=== PATIENT | female | born 1950 | race Caucasian/White ===

== ENCOUNTER 2024-09-12 17:57 | Inpatient (IN) | payer OTHER, MEDICARE, BC, SELFPAY ==
--- NOTE | ~2024-09-12 | XR_ITS ---
XR hip RT 2V w AP pelvis Ordering provider: Jewels Giraldo PA-C History: . fall, R hip pain . Comparison: None. FINDINGS: BONES: Fracture of the right femoral neck is noted at the junction between the neck and the humeral h ead.. HIP JOINT SPACES: Moderate narrowing. SACROILIAC JOINT SPACES/LUMBAR SPINE: The sacroiliac joint spaces are normal. Mild degenerative funk es of the visualized lower lumbar spine. PUBIC SYMPHYSIS: Pubic symphysitis. SOFT TISSUES: Normal. IMPRESSION: Fracture of the right femoral neck. Bilateral hip moderate osteoarthritic changes. Pubic symphysitis. Reviewed, dictated and finalized at location A.
--- NOTE | ~2024-09-12 | CT_ITS ---
CLINICAL INDICATION: Abnormal chest x-ray COMPARISON: Single radiograph of the chest performed approximately 90 minutes earlier. Reference is made to the upper cuts of a CT examination of the abdomen and pelvis dated 11/30/2012. TECHNIQUE: Multiple contiguous axial images of the chest was performed without the administration of intravenous contrast. This CT examination was performed utilizing dose reduction techniques. DLP: 199 mGy-cm FINDINGS/OBSERVATIONS: LUNG: Uncoiling of the thoracic aorta is identified, altering the cardiomediastinal silhouette and simulati ng a right hilar mass on plain film evaluation of the chest. 12 mm well circumscribed fat attenuation nodule within the right lower lobe, unchanged from 11/30/2012 examination, possibly representing a small lipoma. Trace right basilar atelectasis. The remainder of the lungs are clear. HEART: The heart is enlarged, without pericardial effusion. MEDIASTINUM: No pathologically enlarged or morphologically suspicious lymph nodes are identified within the medias tinum, bilateral axilla, or within the soft tissues of the anterior chest wall. Small right hilar lymph nodes are identified. SOFT TISSUES OF THE CHEST: Unremarkable. BONES OF THE CHEST: No acute fracture. No lytic or blastic lesions are identified. UPPER ABDOMEN: Splenic cyst which demonstrates rim calcifications, also unchanged from 2013. IMPRESSION: Uncoiling of the thoracic aorta altering the cardiomediastinal silhouette and simulating a right magaly r mass on plain film evaluation. Trace right basilar atelectasis. The remainder of the lungs are clear. Reviewed, dictated and finalized at location A. IMPRESSION: Uncoiling of the thoracic aorta altering the cardiomediastinal silhouette and s imulating a right hilar mass on plain film evaluation. Trace right basilar atelectasis. The remainder of the lungs are clear.
--- NOTE | ~2024-09-12 | XR_ITS ---
XR chest 1V Ordering provider: Jewels Giraldo PA-C History: 74 years Female with . POSSIBLE HIP FX . Comparison: None. FINDINGS: Calcification seen in the left breast area suggestive of calcified cyst. Ultrasound evaluation advise d. MEDIASTINUM: The cardiac silhouette is slightly enlarged. LUNGS: Soft tissue density measuring 4.3 cm is seen in the right suprahilar area which is suggestive of a mass. CT evaluation advised. No infiltrates, effusions or pneumothorax. OTHER: No free air under the diaphragm. IMPRESSION: No acute cardiopulmonary pathology. Highly suggestive mass in the right supra hilar area. CT evaluation advised Reviewed, dictated and finalized at location A.
--- NOTE | ~2024-09-12 | XR_ITS ---
EXAMINATION: XR hip RT min 2V DATE: 09/14/2024 17:00 INDICATION: Postoperative evaluation following right polar type right hip hemiarthroplasty placement TECHNIQUE: Anteroposterior and lateral views of the right hip were obtained. COMPARISON: 09/12/2024 FINDINGS: Interval resection of the fractured right femoral head and neck and placement of a noncemented bipola r type right hip hemiarthroplasty which appears well seated in near anatomic alignment. No new fractu res identified. Expected soft tissue gas overlying subcutaneous skin natalie at the operative bed. IMPRESSION: 1. Spectral appearance of a bipolar type right hip knee arthroplasty, negative for postoperative purp oses. Reviewed, dictated and finalized at location A. IMPRESSION: 1. Spectral appearance of a bipolar type right hip knee arthroplasty, negative for postoperative purposes.
[2024-09-12 18:00] VITALS: BP 149/99; PULSE 75; RESP 20; TEMP 36.5; O2SAT 95
--- OUTSIDE RECORDS SUMMARY | 2024-09-12 18:31 | XMS_ITS | Clinical Summary ---
Author Organization [facility] Address [address] [place] [address] Care Team Providers Care Reed Worker Name Role Phone Wiley Cook MD Primary Care Provider [phone] Allergies No known active allergies Medications cholecalciferol (VITAMIN D3) 2,000 unit capsule take 1 by Oral route once a day 0 0 01/29/2014 Active ejqcygje-xzi-dd on fum-folic ac 7.5 mg iron-400 mcg tablet Active omeprazole (PriLOSEC) 20 mg capsule Take 1 capsule (20 mg total) by mouth daily 90 capsule 3 12/22/2023 Active Active Problems Problem Noted Date Diagnosed Date Vitamin D deficiency 12/22/2023 Class 1 obesity due to exces s calories with serious comorbidity and body mass index (BMI) of 33.0 to 33.9 in adult 01/24/2018 Assessment & Plan (01/24/2018 10:37 AM BOBBIN FIXER): BMI is more than 30, reviewed calorie restrictions. Gastroesophageal reflux disease 01/18/2017 Assessment & Plan (02/03/2023 11:13 AM BOBBIN FIXER): Reviewed dietary modifications. Continue PPI. Physical exam 01/18/2017 Assessment & Plan (12/21/2023 3:51 PM CDT): Reviewed diet and exercise goals. Await Annual labs. Reviewed immunization and screening status. advised colonoscopy. Advised mammogram. Reviewed dietary modifications. Continue PPI for GERD. Assessment & Plan (02/04/2023 8:53 AM BOBBIN FIXER): Reviewed diet and exercise goals. Await Annual labs. Reviewed immunization and screening status. Advised EGD and colonoscopy. Advised mammogram. Reviewed dietary modifications. Continue PPI for GERD. Reviewed normal CBC and iron panel in October. Await labs for fatigue. Advised 3 meals a day. Increase exercise. Assessment & Plan (02/02/2022 9:08 AM BOBBIN FIXER): Reviewed diet and exercise goals. Await Annual labs. Reviewed immunization and screening status. Plan EGD and colonoscopy when Insurance is clarified.. Advised mammogram. Reviewed dietary modifications. Continue PPI for GERD. Reviewed normal CBC and iron panel in October. Assessment & Plan (01/27/2021 6:13 AM BOBBIN FIXER): Reviewed diet and exercise goals. Await Annual labs. Reviewed immunization and screening status. She is due for colonoscopy. Advised mammogram. Reviewed dietary modifications. Continue PPI. Last year her LDL was 106. Assessment & Plan (01/24/2020 10:31 AM BOBBIN FIXER): Reviewed diet and exercise goals. Await Annual labs. Reviewed immunization and screening status. She will schedule a Colonoscopy in the Spring. Advised mammogram. Reviewed dietary modifications. Continue PPI. Assessment & Plan (01/25/2019 9:26 AM BOBBIN FIXER): Reviewed diet and exercise goals. Await Annual labs. Reviewed immunization and screening status. She is current on colonoscopy. Advised mammogram. Reviewed dietary modifications. Continue PPI. Order TSH,B12 for fatigue. She declines sleep study. Assessment & Plan (01/24/2018 11:02 AM BOBBIN FIXER): Reviewed diet and exercise goals. Await Annual labs. Reviewed immunization and screening status. She is current on colonoscopy. Advised annual mammogram.Reviewed dietary modifications. Continue PPI. Advised ice, quadriceps strengthening for knee pain, meniscal derangement. Assessment & Plan (01/18/2017 11:38 AM BOBBIN FIXER): Reviewed diet and exercise goals. Await Annual labs. Reviewed immunization and screening status Pain of foot 01/27/2016 Immunizations Immunization Administration Dates Next Due Influenza, Quadrivalent, Hig h Dose, Preservative Free, Intrr 02/04/2023,02/02/2022,01/27/2021,01/23 Influenza, Quadrivalent, Spl it, Preservative Free, Intramuscular 12/31/2014 Influenza, Split 01/23/2013 Influenza, Trivalent, High D ose, Split, Preservative Free, Intramuscular 12/22/2023,01/25/2019,01/24/2018,01/18,01/13/2016 Influenza, Trivalent, Preser vative Free, Intramuscular 01/23/2013 Influenza, Trivalent, Split, Preservative Free, Intradermal 01/29/2014 Pneumococcal Conjugate PCV 13 01/13/2016 Pneumococcal Polysaccharide PPV23 01/18/2017 Medical History Medical History Date Comments Hx Other Medical Cholecystectomy Hx Other Medical ganglion cyst r emoved Hx Other Medical right meniscal tear Hx Other Medical Bilateral tubal ligation GERD (gastroesophageal reflux disease) Family History Medical History Relation Name Comments Colon cancer Brother 1 Cancer, colon; Hypertension Brother 2 Family history of hypertension - (Added by TW Conv) Gout Brother 3 Family history of gout - (Added by TW Conv) Cancer Brother 4 Family history of malignant neoplasm - (Added by TW Conv) Arthritis Father Family history of arthritis - (Added by TW Conv) Hypertension Father Hypertension; / Family history of hypertension - (Added by TW Conv) Colon cancer Mother Cancer, colon; Hypertension Mother Hypertension; / Family history of hypertension - (Added by TW Conv) Diabetes Sister 1 Diabetes mellit us; Hypertension Sister 2 Hypertension; Arthritis Sister 3 Family history of arthritis - (Added by TW Conv) Hypertension Sister 4 Family history of hypertension - (Added by TW Conv) Hypertension Son Family history of hypertension - (Added by TW Conv) Relation Name Status Comments Brother 1 Brother 2 Brother 3 Brother 4 Father Mother Sister 1 Sister 2 Sister 3 Sister 4 Son Social History Tobacco Use Types Packs/Day Years Used Date Smoking Tobacco: Never Smokeless Tobacco: Never Alcohol Use Standard Drinks/Week Comments No 0 (1 standard drink = 0.6 oz pur e alcohol) PHQ-2 Answer Date Recorded PHQ-2 Total Score (If total score is 3 or more points, staff should administer the PHQ-9) 0 12/22/2023 Personal Safety Answer Date Recorded Have you ever been in or are you currently in a harmful physical or emotional relationship or is someone making you feel afraid or unsafe? Denies 07/19/2023 Comments No Sex and Gender Information Value Date Recorded Sex Assigned at Not on file Legal Sex Female 3:01 AM BOBBIN FIXER Gender Identity Not on file Sexual Orientation Not on file Obstetrics History Last Filed Vital Signs Vital Sign Reading Time Taken Comments Blood Pressure 136/82 12/22/2023 8:36 AM CDT Pulse 77 12/22/2023 8:36 AM CDT Temperature 37 C (98.6 F) 12/22/2023 8:36 AM CDT Respiratory Rate 18 12/22/2023 8:36 AM CDT Oxygen Saturation 98% 12/22/2023 8:36 AM CDT Inhaled Oxygen Concentration - - Weight 85.7 kg (189 lb) 12/22/2023 8:36 AM CDT Height 167.6 cm (5' 6) 12/22/2023 8:36 AM CDT Body Mass Index 30.51 12/22/2023 8:36 AM CDT Plan of Treatment Health Maintenance Due Date Last Done Comments Breast Cancer Screening-Mammogram 1950 Osteoporosis Screening-Bone Density Scan 1950 DTaP/Tdap/Td Vaccine (1 - Tdap) 1961 Hepatitis B Screening 02/26/1968 Zoster Vaccine (1 of 2) 02/26/2000 Colon Cancer Screening-Colonoscopy 01/24/2020 01/23/2010 Covid-19 Vaccine ( - season) 2024 04/02/2021, 05/21/2020, 04/30/2020 Postponed from 11/07/2023 (Patient declined, but will receive in the future) Depression Screening 12/21/2024 12/22/2023, 02/04/2023, 02/02/2022, Additional history exists Fall Risk Assessment 12/21/2024 12/22/2023, 02/04/2023, 02/02/2022, Additional history exists Well Visit 65+ 12/21/2024 12/22/2023, 01/08, 02/02/2022, Additional history exists Colon Cancer Screening-CT Colonography Discontinued 01/23/2010 Colon Cancer Screening-DNA Stool Discontinued 01/23/2010 Colon Cancer Screening-FIT Discontinued 01/23/2010 Colon Cancer Screening-Sigmoidoscopy Discontinued 01/23/2010 Pneumococcal vaccine 65+ Completed 01/18/2017, 09/2015 Hepatitis C Screening Completed 02/05/2018 Influenza Vaccine Completed 12/22/2023, , 02/02/2022, Additional history exists Procedures Procedure Name Priority Date/Time Associated Diagnosis Comments HEPATITIS C ANTIBODY Routine 02/05/2018 8:48 AM BOBBIN FIXER COLONOSCOPY Routine 01/23/2010 from Last 3 Months or Most Recently Relevant to Health Maintenance Results * Hepatitis C antibody (02/05/2018 8:48 AM BOBBIN FIXER) Pathologist [facility] Hep C Ab NON-REACTI VE NON-REACTI VE [facility] [place] SIGNAL TO CUT-OFF 0.01 <1.00 [facility] [place] 02/05/2018 8:48 AM BOBBIN FIXER 02/05/2018 8:49 AM BOBBIN FIXER Narrative [facility] - 02/07/2018 10:10 AM BOBBIN FIXER FASTING:YES FASTING: YES Resulting Agency Comment Performing Organization Information: Site ID: [id number] Name: [facility] Address: [address] [place] [id number] Director: Maximilian Trevino D.O., MPH Wiley Cook MD LAB MICROBIOLOGY - GENERAL OR DERABLES Final Result [facility] (acquired by [employer]) - [place], [place] * COLONOSCOPY (01/23/2010) Pathologist [facility] Colonoscopy Abnormal Historical Provider HEALTH MAINTENANCE Final Result from Last 3 Months or Most Recently Relevant to Health Maintenance Insurance ANTH ACCESS [facility] FEDERAL [facility] [employer] Care Teams Reed Worker Relationship Specialty Start Date End Date Wiley Cook MD [address] [facility] [address] [place] [address] PCP - General 07/25/13
--- OUTSIDE RECORDS SUMMARY | 2024-09-12 18:31 | XMS_ITS | Referral Summary ---
Author Organization [facility] Address [address] [place] [address] Care Team Providers Care Warehouse Forklift Operator Name Role Phone Wiley Cook MD Primary Care Provider [phone] Allergies No known active allergies Medications cholecalciferol (VITAMIN D3) 2,000 unit capsule take 1 by Oral route once a day 0 0 01/29/2014 Active htrribaa-exj-ey on fum-folic ac 7.5 mg iron-400 mcg [...] 01/24/2018 Assessment & Plan (01/24/2018 10:37 AM BUSINESS SUPPORT MANAGER): BMI is more than 30, reviewed calorie restrictions. Gastroesophageal reflux disease 01/18/2017 Assessment & Plan (02/03/2023 11:13 AM BUSINESS SUPPORT MANAGER): Reviewed dietary modifications. Continue PPI. Physical exam 01/18/2017 Assessment & Plan (12/21/2023 3:51 PM CDT): Reviewed diet and exercise goals. Await Annual labs. Reviewed immunization and screening status. advised colonoscopy. Advised mammogram. Reviewed dietary modifications. Continue PPI for GERD. Assessment & Plan (02/04/2023 8:53 AM BUSINESS SUPPORT MANAGER): Reviewed diet and exercise goals. Await Annual labs. Reviewed immunization and screening status. Advised EGD and colonoscopy. Advised mammogram. Reviewed dietary modifications. Continue PPI for GERD. Reviewed normal CBC and iron panel in October. Await labs for fatigue. Advised 3 meals a day. Increase exercise. Assessment & Plan (02/02/2022 9:08 AM BUSINESS SUPPORT MANAGER): Reviewed diet and exercise goals. Await Annual labs. Reviewed immunization and screening status. Plan EGD and colonoscopy when Insurance is clarified.. Advised mammogram. Reviewed dietary modifications. Continue PPI for GERD. Reviewed normal CBC and iron panel in October. Assessment & Plan (01/27/2021 6:13 AM BUSINESS SUPPORT MANAGER): Reviewed diet and exercise goals. Await Annual labs. Reviewed immunization and screening status. She is due for colonoscopy. Advised mammogram. Reviewed dietary modifications. Continue PPI. Last year her LDL was 106. Assessment & Plan (01/24/2020 10:31 AM BUSINESS SUPPORT MANAGER): Reviewed diet and exercise goals. Await Annual labs. Reviewed immunization and screening status. She will schedule a Colonoscopy in the Spring. Advised mammogram. Reviewed dietary modifications. Continue PPI. Assessment & Plan (01/25/2019 9:26 AM BUSINESS SUPPORT MANAGER): Reviewed diet and exercise goals. Await Annual labs. Reviewed immunization and screening status. She is current on colonoscopy. Advised mammogram. Reviewed dietary modifications. Continue PPI. Order TSH,B12 for fatigue. She declines sleep study. Assessment & Plan (01/24/2018 11:02 AM BUSINESS SUPPORT MANAGER): Reviewed diet and exercise goals. Await Annual labs. Reviewed immunization and screening status. She is current on colonoscopy. Advised annual mammogram.Reviewed dietary modifications. Continue PPI. Advised ice, quadriceps strengthening for knee pain, meniscal derangement. Assessment & Plan (01/18/2017 11:38 AM BUSINESS SUPPORT MANAGER): Reviewed diet and exercise goals. Await Annual [...] PCV 13 01/13/2016 Pneumococcal Polysaccharide PPV23 01/18/2017 Social History Tobacco Use Types Packs/Day Years [...] on file Legal Sex Female 3:01 AM BUSINESS SUPPORT MANAGER Gender Identity Not on file Sexual Orientation Not on file Last Filed Vital Signs Vital Sign Reading [...] 12/22/2023 8:36 AM CDT Plan of Treatment Not on file Procedures Procedure Name Priority Date/Time Associated Diagnosis Comments HEPATITIS C ANTIBODY Routine 02/05/2018 8:48 AM BUSINESS SUPPORT MANAGER [facility] COLONOSCOPY Routine 01/23/2010 from Last 3 Months or Most Recently Relevant to Health Maintenance Results * Hepatitis C antibody (02/05/2018 8:48 AM BUSINESS SUPPORT MANAGER) Hep C Ab NON-REACTI VE NON-REACTI VE [facility] [place] SIGNAL TO CUT-OFF 0.01 <1.00 [facility] [place] 02/05/2018 8:48 AM BUSINESS SUPPORT MANAGER 02/05/2018 8:49 AM BUSINESS SUPPORT MANAGER Narrative [facility] - 02/07/2018 10:10 AM BUSINESS SUPPORT MANAGER FASTING:YES FASTING: YES Resulting Agency Comment Performing Organization Information: Site ID: [place] Name: [facility] Address: [address] [place] [id number] Director: Maximilian Trevino D.O., MPH Wiley Cook MD LAB MICROBIOLOGY - GENERAL OR DERABLES Final Result [facility] - APRIL Belcher APRIL * HM COLONOSCOPY (01/23/2010) Colonoscopy Abnormal Bill Provider HEALTH MAINTENANCE Final Result from Last 3 Months or Most Recently Relevant to Health Maintenance [place] [place] [address] ANTH ACCESS [facility] [employer] [facility] Care Teams Warehouse Forklift Operator Relationship Specialty Start Date End Date Wiley Cook MD [address] [facility] [address] [place] [address] PCP - General 07/25/13
[2024-09-12] MEDS: MORPHINE SULFATE (*CRX) 4 MG/ML INJ IV PUSH (18:49)
[2024-09-12] MEDS: ONDANSETRON INJ 4 MG/2 ML VIAL IV PUSH ×2 (18:51→22:35)
--- NOTE | 2024-09-12 19:13 | ECG_ITS ---
Test Date: 2024-09-12 19:26:56 Measurements Intervals [place] Rate: P: 0 VA: 0 QRS: 0 QRSD: 0 T: 0 QT: 0 QTc: 0 Interpretive Statements SINUS RHYTHM WITH OCCASIONAL PAC BORDERLINE ECG Electronically Signed On 09-13-2024 07:46:19 CDT by Faustino Plaza M.D.
--- NOTE | 2024-09-12 19:14 | ED_ITS ---
HPI - Fall General Chief Complaint: Fall <Jewels Giraldo PA-C - Last Filed: 09/12/24 21:42> Stated Complaint: fall <Jewels Giraldo PA-C - Last Filed: 09/12/24 21:42> Time Seen by Provider: 09/12/24 18:02 <Jewels Giraldo PA-C - Last Filed: 09/12/24 21:42> Source: patient <BETTY Lee Last Filed: 09/12/24 21:42> Mode of arrival: EMS <Jewels Giraldo PA-C - Last Filed: 09/12/24 21:42> Limitations: no limitations <Jewels Giraldo PA-C - Last Filed: 09/12/24 21:42> History of Present Illness HPI Narrative: Patient is a 74 y/o female who presents to the ED via EMS with c/o right hip pain. Patient reports she slipped over a box at work and fell, landing onto her right side/hip. States she was unable to put any weight or move her right leg after the fall. Denies any other injury from the fall. Denied head injury or LOC. Denies numbness. Patient is not on any anticoagulation. <Jewels Giraldo PA-C - Last Filed: 09/12/24 21:42> Related Data Allergies/Adverse Reactions: Allergies Allergy/AdvReac Type Severity Reaction Status Date / Time No Known Allergies Allergy Verified 09/12/24 18:07 <Jewels Giraldo PA-C - Last Filed: 09/12/24 21:42> Review of Systems 2 Review of Systems: All systems reviewed & are unremarkable except as noted in HPI. <Jewels Giraldo PA-C - Last Filed: 09/12/24 21:42> All systems reviewed & are unremarkable except as noted in HPI and below < Jewels Giraldo PA-C - Last Filed: 09/12/24 21:42> PMFSH Family History Family History: Family History Other Carcinoma of colon Family history of malignant neoplasm of male breast <Jewels Giraldo PA-C - Last Filed: 09/12/24 21:42> Social History Social History: Social History Smoking status: Never smoker Alcohol intake: never <Jewels Giraldo PA-C - Last Filed: 09/12/24 21:42> Exam 2 Narrative: GENERAL: Well appearing, well-nourished, non-toxic, in no acute distress. HEAD: Normocephalic, atraumatic. RESPIRATORY: Airway patent, respirations nonlabored. Clear to auscultation bilaterally, no rales, rhonchi, wheezing. CARDIOVASCULAR: Regular rate and rhythm without murmurs, rubs, or gallops. Pedal pulses are intact and easily palpable. MUSCULOSKELETAL: Moves all extremities. No gross deformities. No appreciable shortening or external rotation of right lower extremity. Tenderness to palpation over right lateral hip joint. Sensation intact throughout extremity. No peripheral edema. SKIN: Warm, dry, normal color. NEURO: A&O X3. Speech clear. No ataxic movements. PSYCHIATRIC: Appropriate mood and affect. Normal interaction. <Jewels Giraldo PA-C - Last Filed: 09/12/24 21:42> Course PLANNING TECHNICIAN/PA Physician Supervision For this patient encounter, I reviewed the PLANNING TECHNICIAN or PA documentation, treatment plan, and medical decision making; and I had [id number] time with this patient. <Sekou Helm MD - Last Filed: 09/12/24 22:46> Vital Signs Vital signs: Vital Signs Temperature 97.7 F 09/12/24 18:00 Pulse Rate 75 09/12/24 18:00 Respiratory Rate 20 09/12/24 18:00 Blood Pressure 149/99 H 09/12/24 18:00 Pulse Oximetry 95 09/12/24 18:00 Oxygen Delivery Room Air 09/12/24 18:00 Temperature 98.4 F 09/12/24 22:09 Pulse Rate 87 09/12/24 22:09 Respiratory Rate 20 09/12/24 22:09 Blood Pressure 135/78 09/12/24 22:09 Pulse Oximetry 98 09/12/24 22:09 Oxygen Delivery Room Air 09/12/24 18:00 <Jewels Giraldo PA-C - Last Filed: 09/12/24 21:42> Vital Signs Temperature 97.7 F 09/12/24 18:00 Pulse Rate 75 09/12/24 18:00 Respiratory Rate 20 09/12/24 18:00 Blood Pressure 149/99 H 09/12/24 18:00 Pulse Oximetry 95 09/12/24 18:00 Oxygen Delivery Room Air 09/12/24 18:00 Temperature 98.4 F 09/12/24 22:09 Pulse Rate 87 09/12/24 22:09 Respiratory Rate 20 09/12/24 22:09 Blood Pressure 135/78 09/12/24 22:09 Pulse Oximetry 98 09/12/24 22:09 Oxygen Delivery Room Air 09/12/24 18:00 <Sekou Helm MD - Last Filed: 09/12/24 22:46> MDM - Fall MDM Narrative Medical decision making narrative: Patient presented to ED status post ground level mechanical fall onto right hip. Unable to bear weight. Vital signs stable upon arrival. Patient neurovascularly intact. Denies any other injury from the fall. Denies head injury or LOC. X-ray of right hip showing right femoral neck fracture. Consistent with clinical picture. Preop workup was initiated. Chest x-ray did show possible right hilar mass. Recommended CT. Will obtain. CT unremarkable, shows thoracic aorta causing picture of R hilar mass seeen on XR. Discussed diagnosis of femoral neck fracture with patient, need for surgery. Patient personally requested Dr. Mane or Dr. Jeff to perform the surgery. I advised that neither of these physicians are on-call today, but that I will attempt to talk to them. Discussed case with Dr. Mane, advised he does not have availability in his OR schedule in the upcoming days. Discussed case with Dr. Jeff, also advised unable to accommodate patient at this time. Discussed this with patient. She is willing to be seen by Dr. Nelsno. She does not wish to be transferred for outside services. Discussed case with Dr. Nelson, orthopedics, will consult and see patient in the AM. Discussed case with Dr. Vega, hospitalist, accepted patient for admission. < Jewels Giraldo PA-C - Last Filed: 09/12/24 21:42> Medical Records Attestation: I reviewed the patient's medical records. <Jewels Giraldo PA-C - Last Filed: 09/12/24 21:42> Lab Data Attestation: I reviewed the patient's lab results. <Jewels Giraldo PA-C - Last Filed: 09/12/24 21:42> Result diagrams: 09/12/24 20:36 09/12/24 20:36 <Jewels Giraldo PA-C - Last Filed: 09/12/24 21:42> Labs: Lab Results 09/12/24 09/12/24 Range/Units 20:35 20:36 WBC 13.0 H (4.5-10.0) K/mm3 RBC 4.31 (4.2-5.4) M/mm3 Hgb 10.6 L (12.0-15.0) g/dL Hct 34.7 L (37.0-47.0) % MCV 80.5 (80-100) fl MCH 24.6 L (26-34) pg MCHC 30.5 L (32-36) g/dl RDW 18.2 H (11.5-14.5) % Plt Count 264 (150-375) k/mm3 MPV 9.6 (7.4-10.4) fl Immature Gran % (Auto) 0.5 (0-0.5) % Neut % (Auto) 89.6 H (45.5-73.1) % Lymph % (Auto) 6.5 L (18.3-44.2) % [place] % (Auto) 3.1 (2.6-8.5) % Eos % (Auto) 0.1 (0-4.4) % Baso % (Auto) 0.2 (0.2-1.2) % Lymph # (Auto) 0.84 L (0.9-3.2) K/mm3 [place] # (Auto) 0.4 (0.1-0.6) K/mm3 Eos # (Auto) 0.0 (0-0.3) K/mm3 Baso # (Auto) 0.0 (0.0-0.1) K/mm3 Abs Immat Gran (auto) 0.07 H (0.00-0.031) K/mm3 Absolute Neuts (auto) 11.6 H (1.3-6.7) K/mm3 Absolute Nucleated RBC 0.000 (0.0-0.012) K/mm3 Nucleated RBC % 0.0 (0.0-0.2) % PT 13.8 (11.1-14.7) Seconds INR 1.1 APTT 25.8 (22.3-36.8) Seconds Sodium 138 (137-145) mmol/L Potassium 4.0 (3.4-5.0) mmol/L Chloride 107 (98-107) mmol/L Carbon Dioxide 24 (22-30) mmol/L Anion Gap 7 (4-12) mmol/L BUN 18 H (7-17) mg/dL Creatinine 0.86 (0.7-1.0) mg/dL Estim Creat Clear Calc 54 ml/min Estimated GFR > 60 (59 - ) Glucose 130 H (65-110) mg/dL Calcium 9.2 (8.4-10.2) mg/dL Total Bilirubin 0.3 (0.2-1.3) mg/dL AST 32 (14-36) U/L ALT 16 (6-35) U/L Alkaline Phosphatase 86 (38-126) U/L Total Protein 7.0 (6.3-8.2) g/dL Albumin 3.8 (3.5-5.1) g/dL <Jewels Giraldo PA-C - Last Filed: 09/12/24 21:42> Lab Results 09/12/24 09/12/24 Range/Units 20:35 20:36 WBC 13.0 H (4.5-10.0) K/mm3 RBC 4.31 (4.2-5.4) M/mm3 Hgb 10.6 L (12.0-15.0) g/dL Hct 34.7 L (37.0-47.0) % MCV 80.5 (80-100) fl MCH 24.6 L (26-34) pg MCHC 30.5 L (32-36) g/dl RDW 18.2 H (11.5-14.5) % Plt Count 264 (150-375) k/mm3 MPV 9.6 (7.4-10.4) fl Immature Gran % (Auto) 0.5 (0-0.5) % Neut % (Auto) 89.6 H (45.5-73.1) % Lymph % (Auto) 6.5 L (18.3-44.2) % [place] % (Auto) 3.1 (2.6-8.5) % Eos % (Auto) 0.1 (0-4.4) % Baso % (Auto) 0.2 (0.2-1.2) % Lymph # (Auto) 0.84 L (0.9-3.2) K/mm3 [place] # (Auto) 0.4 (0.1-0.6) K/mm3 Eos # (Auto) 0.0 (0-0.3) K/mm3 Baso # (Auto) 0.0 (0.0-0.1) K/mm3 Abs Immat Gran (auto) 0.07 H (0.00-0.031) K/mm3 Absolute Neuts (auto) 11.6 H (1.3-6.7) K/mm3 Absolute Nucleated RBC 0.000 (0.0-0.012) K/mm3 Nucleated RBC % 0.0 (0.0-0.2) % PT 13.8 (11.1-14.7) Seconds INR 1.1 APTT 25.8 (22.3-36.8) Seconds Sodium 138 (137-145) mmol/L Potassium 4.0 (3.4-5.0) mmol/L Chloride 107 (98-107) mmol/L Carbon Dioxide 24 (22-30) mmol/L Anion Gap 7 (4-12) mmol/L BUN 18 H (7-17) mg/dL Creatinine 0.86 (0.7-1.0) mg/dL Estim Creat Clear Calc 54 ml/min Estimated GFR > 60 (59 - ) Glucose 130 H (65-110) mg/dL Calcium 9.2 (8.4-10.2) mg/dL Total Bilirubin 0.3 (0.2-1.3) mg/dL AST 32 (14-36) U/L ALT 16 (6-35) U/L Alkaline Phosphatase 86 (38-126) U/L Total Protein 7.0 (6.3-8.2) g/dL Albumin 3.8 (3.5-5.1) g/dL <Sekou Helm MD - Last Filed: 09/12/24 22:46> Imaging Data Attestation: I personally reviewed and interpreted this imaging study as follows: < Jewels Giraldo PA-C - Last Filed: 09/12/24 21:42> Radiologist's impression: ITS Impressions Hip/Pelvis X-Ray 09/12/24 19:19 IMPRESSION: Fracture of the right femoral neck. Bilateral hip moderate osteoarthritic changes. Pubic symphysitis. Chest X-Ray 09/12/24 19:21 IMPRESSION: No acute cardiopulmonary pathology. Highly suggestive mass in the right supra hilar area. CT evaluation advised Chest CT 09/12/24 21:04 IMPRESSION: Uncoiling of the thoracic aorta altering the cardiomediastinal silhouette and simulating a right hilar mass on plain film evaluation. Trace right basilar atelectasis. The remainder of the lungs are clear. <Jewels Giraldo PA-C - Last Filed: 09/12/24 21:42> Discharge Plan Discharge Clinical Impression: Closed fracture of neck of right femur Qualifiers: Encounter type: initial encounter Qualified Code(s): S72.001A - Fracture of unspecified part of neck of right femur, initial encounter for closed fracture Closed head injury Qualifiers: Encounter type: initial encounter Qualified Code(s): S09.90XA - Unspecified injury of head, initial encounter <Jewels Giraldo PA-C - Last Filed: 09/12/24 21:42> Patient Disposition: Still a Patient <Jewels Giraldo PA-C - Last Filed: 09/12/24 21:42> Condition: Stable <BETTY Lee Last Filed: 09/12/24 21:42>
[2024-09-12 20:48] LABS: Hematocrit 34.7 % (37.0-47.0); Hemoglobin 10.6 g/dL (12.0-15.0); Immature Granulocyte Percent A 0.5 % (0-0.5); Lymphocytes Absolute Auto 0.84 K/mm3 (0.9-3.2); Mean Corpuscular HGB Conc 30.5 g/dl (32-36); Mean Corpuscular Hemoglobin 24.6 pg (26-34); Mean Corpuscular Volume 80.5 fl (80-100); Nucleated Red Blood Cells Absolute Auto 0.000 K/mm3 (0.0-0.012); Nucleated Red Blood Cells Perc 0.0 % (0.0-0.2); Platelet Count Result 264 k/mm3 (150-375); Red Blood Count 4.31 M/mm3 (4.2-5.4); White Blood Count 13.0 K/mm3 (4.5-10.0)
[2024-09-12 20:57] LABS: Alanine Aminotransferase 16 U/L (6-35); Albumin Level 3.8 g/dL (3.5-5.1); Alkaline Phosphatase 86 U/L (38-126); Anion Gap 7 mmol/L (4-12); Aspartate Amino Transferase 32 U/L (14-36); Bilirubin,Total 0.3 mg/dL (0.2-1.3); Blood Urea Nitrogen 18 mg/dL (7-17); Calcium 9.2 mg/dL (8.4-10.2); Carbon Dioxide 24 mmol/L (22-30); Chloride 107 mmol/L (98-107); Estimated CRCL calculation 54 ml/min; Estimated Glomerular Filt Rate > 60; Glucose 130 mg/dL (65-110); Potassium 4.0 mmol/L (3.4-5.0); Sodium 138 mmol/L (137-145); Total Protein 7.0 g/dL (6.3-8.2)
[2024-09-12 21:01] LABS: INR 1.1; Partial Thromboplastin Time 25.8 Seconds (22.3-36.8); Prothrombin Time 13.8 Seconds (11.1-14.7)
[2024-09-12] MEDS: HYDROmorphone HCL INJ (*CRX) 2 MG/ML VIAL 0.5 MG IV PUSH (22:04)
[2024-09-12 22:09] VITALS: BP 135/78; PULSE 87; RESP 20; TEMP 36.9; O2SAT 98
[2024-09-12 23:04] VITALS: BMI 28.8
--- NOTE | 2024-09-12 23:05 | ADMGEN ---
This patient, Tena Lan, was admitted to 3 [facility] Surg Room 325-01. Patient/family oriented to hospital policies and general routines including ID bracelet, bed and alarms, visiting hours, pain management, procedures, bathroom and other care routines, personal items, smoking policy, room service/diet, and visiting hours. Information on how to activate the Rapid Response Team has been discussed. Patient/Family are encouraged to report perceived risks to care and to ask questions if they do not understand what they are told or what they should do.
[2024-09-13 00:01] VITALS: BP 150/73; PULSE 84; RESP 18; TEMP 36.6; O2SAT 97
[2024-09-13] MEDS: ONDANSETRON INJ 4 MG/2 ML VIAL IV PUSH ×5 (02:45→20:13)
[2024-09-13] MEDS: MORPHINE SULFATE (*CRX) 4 MG/ML INJ IV PUSH ×5 (02:45→20:20)
[2024-09-13 06:00] VITALS: BP 137/82; PULSE 93; RESP 18; TEMP 36.8; O2SAT 98
[2024-09-13 08:00] VITALS: O2SAT 98
[2024-09-13] MEDS: PANTOPRAZOLE 40 MG TABLET PO (09:57)
[2024-09-13 13:46] VITALS: BP 111/87; PULSE 78; RESP 16; TEMP 36.2; O2SAT 97
--- NOTE | 2024-09-13 15:41 | P.HP_ITS ---
H&P: HPI History of Present Illness Date/Time: 09/13/24 15:41 Chief Complaint: right hip pain after a fall Narrative: 74 yo female with PMH of GERD presented to the ER on account of right hip pain following a fall. Patient noted that she tripped on a box at work at about 4pm. Denies any chest pain, SOB, lightheadedness, Abd pain, diarrhea and vomiting, dysuria and no focal weakness prior to episode. ER eval noted BP 149/99, labs notable for WBC 13, Xray hip showed right femoral neck fracture CXR showed mass in right supra hilar area, CT doen clarified that is uncoiling of the aorta, thus hilar mass ruled out Ortho was consulted prior to admission Review of Systems Review of Systems: All other systems were reviewed and negative except as noted in the HPI above [facility] Family History Family History Other Carcinoma of colon Family history of malignant neoplasm of male breast Social History Social History Smoking status: Never smoker Alcohol intake: never Substance use: never Do You Feel Safe in your Home?: Yes Lack of Transportation: No Lack of Food: Never True Current Housing: I Have Housing Concerned About Future Housing: No Difficulty Paying Gas/Electric Bills: No Difficulty Paying for Meds: No Currently Unemployed: No Education: High School Diploma/GED Difficulty w/ Childcare or Family Care: No Spiritual care concerns: No Meds Home Medications and Allergies Home Medications ?Medication ?Instructions ?Recorded ?Confirmed ?Type omeprazole 20 mg capsule,delayed 20 mg PO DAILY 09/12/24 09/12/24 History release Allergies Allergy/AdvReac Type Severity Reaction Status Date / Time No Known Allergies Allergy Verified 09/12/24 18:07 Vital Signs Vital Signs - 24 hr 09/12/24 18:00 09/12/24 22:09 09/12/24 23:04 Temperature 97.7 F 98.4 F Pulse Rate 75 87 Respiratory Rate 20 20 Blood Pressure 149/99 H 135/78 Pulse Oximetry 95 98 Oxygen Delivery Room Air Room Air 09/13/24 00:01 09/13/24 06:00 09/13/24 08:00 Temperature 97.8 F 98.2 F Pulse Rate 84 93 Respiratory Rate 18 18 Blood Pressure 150/73 H 137/82 Pulse Oximetry 97 98 98 Oxygen Delivery Room Air 09/13/24 13:46 Temperature 97.1 F L Pulse Rate 78 Respiratory Rate 16 Blood Pressure 111/87 Pulse Oximetry 97 Oxygen Delivery Exam Narrative: General: alert and comfortable Eyes: EOMI, PERRLA ENNT External ears normal, Neck is supple, no masses, Respiratory systems: Clear to auscultation Cardiovascular S1, S2, normal rhythm, no murmur, rub, or gallop; no thrill or palpable murmurs on palpation. Gastrointestinal: soft, non-tender, and non-distended abdomen with no masses; BS present Skin: no rash, lesions, ulcerations, subcutaneous nodules or induration Musculoskeletal: unabel to exame right LE due to pain Neurologic: Alert and oriented x3, non focal Mental Status Exam: normal affect H&P: Results Labs Labs: Short CBC 09/12/24 Range/Units 20:36 WBC 13.0 H (4.5-10.0) K/mm3 Hgb 10.6 L (12.0-15.0) g/dL Hct 34.7 L (37.0-47.0) % Plt Count 264 (150-375) k/mm3 BMP 09/12/24 20:36 Sodium 138 Potassium 4.0 Chloride 107 Carbon Dioxide 24 BUN 18 H Creatinine 0.86 Glucose 130 H Calcium 9.2 Liver Function 09/12/24 Range/Units 20:36 Total Bilirubin 0.3 (0.2-1.3) mg/dL AST 32 (14-36) U/L ALT 16 (6-35) U/L Alkaline Phosphatase 86 (38-126) U/L Albumin 3.8 (3.5-5.1) g/dL Assessment and Plan Assessment and plan (1) Closed fracture of neck of right femur: Qualifiers: Encounter type: initial encounter Qualified Code(s): S72.001A - Fracture of unspecified part of neck of right femur, initial encounter for closed fracture Code(s): S72.001A - Fracture of unspecified part of neck of right femur, initial encounter for closed fracture Status: Acute Plan Right hip fracture From mechanical fall Patient denies any head trauma or lightheadedness or passing out XR hip reviwed Ortho consulted and scheduled for surgery tomorrow PRN IV morphine for pain control Anemia Hb 10.6 Iron panel and FOBT pending monitor H and H GERD continue Protonix DVT prophylaxis on Sq Lovenox Full code SDM: Rod Lan Hospitalist [facility] Advance Care Plan I have confirmed that the patient's Advanced Care Plan is present, code status is documented, or surrogate decision maker is listed in patient medical record.: Yes Medication Reconciliation I have utilized all available resources to obtain, update and review the patients current medications (includes all prescriptions, OTC, herbals, cannabis, and nutritional supplements).: Yes
[2024-09-13 20:00] VITALS: PULSE 80; RESP 17; O2SAT 96
[2024-09-13 20:10] VITALS: BP 136/80; PULSE 78; RESP 18; O2SAT 95
[2024-09-14] VITALS (15 sets, daily range): BP systolic 135–166; BP diastolic 66–87; PULSE 68–84; RESP 12–20; TEMP 36.3–37.4; O2SAT 92–100
[2024-09-14] MEDS: ONDANSETRON INJ 4 MG/2 ML VIAL IV PUSH ×2 (00:34→08:33)
[2024-09-14] MEDS: MORPHINE SULFATE (*CRX) 4 MG/ML INJ IV PUSH ×2 (00:39→08:32)
[2024-09-14 06:38] LABS: Hematocrit 33.9 % (37.0-47.0); Hemoglobin 10.2 g/dL (12.0-15.0); Immature Granulocyte Percent A 0.4 % (0-0.5); Lymphocytes Absolute Auto 1.79 K/mm3 (0.9-3.2); Mean Corpuscular HGB Conc 30.1 g/dl (32-36); Mean Corpuscular Hemoglobin 25.1 pg (26-34); Mean Corpuscular Volume 83.3 fl (80-100); Nucleated Red Blood Cells Absolute Auto 0.000 K/mm3 (0.0-0.012); Nucleated Red Blood Cells Perc 0.0 % (0.0-0.2); Platelet Count Result 227 k/mm3 (150-375); Red Blood Count 4.07 M/mm3 (4.2-5.4); White Blood Count 7.1 K/mm3 (4.5-10.0)
[2024-09-14 06:54] LABS: Iron 34 ug/dL (37-170)
[2024-09-14 06:56] LABS: Alanine Aminotransferase 14 U/L (6-35); Albumin Level 3.6 g/dL (3.5-5.1); Alkaline Phosphatase 78 U/L (38-126); Anion Gap 7 mmol/L (4-12); Aspartate Amino Transferase 29 U/L (14-36); Bilirubin,Total 0.6 mg/dL (0.2-1.3); Blood Urea Nitrogen 13 mg/dL (7-17); Calcium 8.9 mg/dL (8.4-10.2); Carbon Dioxide 26 mmol/L (22-30); Chloride 105 mmol/L (98-107); Estimated CRCL calculation 50 ml/min; Estimated Glomerular Filt Rate 58; Glucose 97 mg/dL (65-110); Magnesium 2.3 mg/dL (1.6-2.3); Potassium 3.9 mmol/L (3.4-5.0); Sodium 138 mmol/L (137-145); Total Protein 6.6 g/dL (6.3-8.2)
[2024-09-14 07:03] LABS: Percent Iron Saturation 11 % (20-50)
--- NOTE | 2024-09-14 07:18 | PM.CNOR ---
Assessment and Plan Assessment and plan (1) Closed fracture of neck of right femur: Qualifiers: Encounter type: initial encounter Qualified Code(s): S72.001A - Fracture of unspecified part of neck of right femur, initial encounter for closed fracture Code(s): S72.001A - Fracture of unspecified part of neck of right femur, initial encounter for closed fracture Status: Acute Plan 74-year-old female with Right Hip femoral neck fracture as a result of a fall while at work for [employer]. This is a displaced femoral neck fracture. I advised the patient that she has lost the blood supply to the femoral head, therefore fixation with screws is not an option. I recommend a Right Hip [place] arthroplasty. Risks include but are not limited to infection, nerve and blood vessel injury, DVT, limb length discrepancy, sciatic nerve injury resulting in a foot drop. The patient agrees to proceed. History of Present Illness HPI Consult date: 09/14/24 Chief complaint: R femoral neck fx Narrative: The patient is a 74-year-old female presented to the emergency room with a displaced Right Hip from a neck fracture after a fall while at work for a company by a name of [employer]. She was carrying a carton at the time, a tub, and walking around a corner and tripped over a box. She fell onto her Right Hip and was unable to ambulate at the time. She was taken to the emergency department at [facility] by EMS and I was consulted for orthopedic care. The patient reports pain nowhere else except for on the Right Hip. [facility] Family History Family History Other Carcinoma of colon Family history of malignant neoplasm of male breast Social History Social History Smoking status: Never smoker Alcohol intake: never Substance use: never Do You Feel Safe in your Home?: Yes Lack of Transportation: No Lack of Food: Never True Current Housing: I Have Housing Concerned About Future Housing: No Difficulty Paying Gas/Electric Bills: No Difficulty Paying for Meds: No Currently Unemployed: No Education: High School Diploma/GED Difficulty w/ Childcare or Family Care: No Spiritual care concerns: No Meds Home Medications and Allergies Home Medications ?Medication ?Instructions ?Recorded ?Confirmed ?Type omeprazole 20 mg capsule,delayed 20 mg PO DAILY 09/12/24 09/12/24 History release Allergies Allergy/AdvReac Type Severity Reaction Status Date / Time No Known Allergies Allergy Verified 09/12/24 18:07 Vital Signs Vital Signs - 24 hr 09/13/24 08:00 09/13/24 13:46 09/13/24 20:00 Temperature 36.2 C L Pulse Rate 78 80 Respiratory Rate 16 17 Blood Pressure 111/87 Pulse Oximetry 98 97 96 Oxygen Delivery Room Air Room Air 09/13/24 20:10 09/14/24 00:03 09/14/24 04:55 Temperature 37.0 C 36.3 C L Pulse Rate 78 80 73 Respiratory Rate 18 17 16 Blood Pressure 136/80 142/73 H Pulse Oximetry 95 96 96 Oxygen Delivery Exam Narrative: Examination of the patient's Right Hip shows that she has significant pain with range of motion and log rolling of the Right Hip. She has no swelling, tenderness, or deformity of bilateral Knees, bilateral Ankles, or bilateral upper extremity Elbows or Wrists. She does have incisional sites indicative of previous arthroscopic surgery to the Right Knee, but no tenderness in this area. She has good dorsiflexion of the Ankle and good dorsalis pedis pulse palpable to the Right lower extremity and to the Left lower extremity. Const: General: cooperative, healthy appearing, comfortable, no acute distress, well developed, alert and awake Nutritional Appearance: average body habitus Orientation/consciousness: oriented to person, oriented to place and oriented to time Results Labs 09/14/24 05:53 09/14/24 05:53 Labs: Abnormal lab results 09/14/24 Range/Units 05:53 RBC 4.07 L (4.2-5.4) M/mm3 Hgb 10.2 L (12.0-15.0) g/dL Hct 33.9 L (37.0-47.0) % MCH 25.1 L (26-34) pg MCHC 30.1 L (32-36) g/dl RDW 18.4 H (11.5-14.5) % Estimated GFR 58 L (59 - ) Iron 34 L (37-170) ug/dL % Saturation 11 L (20-50) % H & H 09/12/24 09/14/24 Range/Units 20:36 05:53 Hgb 10.6 L 10.2 L (12.0-15.0) g/dL Hct 34.7 L 33.9 L (37.0-47.0) % Coagulation 09/12/24 Range/Units 20:35 INR 1.1 All other labs normal.
[2024-09-14 07:30] LABS: Ferritin 12.00 ng/mL (11.1-264)
[2024-09-14] MEDS: PANTOPRAZOLE 40 MG TABLET PO (08:34)
[2024-09-14] MEDS: IRON SUCROSE COMPLEX 400 MG, IRON SUCROSE COMPLEX 100 MG in SODIUM CHLORIDE 0.9% IV 250 ML 78.57 MG IVPB (08:49)
--- NOTE | 2024-09-14 11:37 | P.PNAN_ITS ---
Anes - Initial Pre Proc Eval Procedure: Operation Date: 09/14/24 12:30 Proposed Procedures p Right Bipolar Hip Replacement - Robert Nelson MD Date/Time: 09/14/24 11:37 Surgeon: Alisson Mathew MD Pre Op Diagnosis: R femoral neck fx Patient Data Age: 74 Gender: F Height: 1.68 m Weight: 81 kg Last Vital Signs Temp 97.3 F L 09/14/24 04:55 Pulse 73 09/14/24 04:55 Resp 16 09/14/24 04:55 BP 142/73 H 09/14/24 04:55 Pulse Ox 96 09/14/24 04:55 O2 Del Method Room Air 09/13/24 20:00 Allergies Allergy/AdvReac Type Severity Reaction Status Date / Time No Known Allergies Allergy Verified 09/14/24 11:33 Home Medications ?Medication ?Instructions ?Recorded ?Confirmed ?Type omeprazole 20 mg capsule,delayed 20 mg PO DAILY 09/12/24 09/12/24 History release Laboratory Tests 09/14/24 05:53 WBC 7.1 K/mm3 (4.5-10.0) RBC 4.07 L M/mm3 (4.2-5.4) Hgb 10.2 L g/dL (12.0-15.0) Hct 33.9 L % (37.0-47.0) MCV 83.3 fl (80-100) MCH 25.1 L pg (26-34) MCHC 30.1 L g/dl (32-36) RDW 18.4 H % (11.5-14.5) Plt Count 227 k/mm3 (150-375) MPV 9.5 fl (7.4-10.4) Immature Gran % (Auto) 0.4 % (0-0.5) Neut % (Auto) 65.0 % (45.5-73.1) Lymph % (Auto) 25.2 % (18.3-44.2) [place] % (Auto) 6.5 % (2.6-8.5) Eos % (Auto) 2.5 % (0-4.4) Baso % (Auto) 0.4 % (0.2-1.2) Lymph # (Auto) 1.79 K/mm3 (0.9-3.2) [place] # (Auto) 0.5 K/mm3 (0.1-0.6) Eos # (Auto) 0.2 K/mm3 (0-0.3) Baso # (Auto) 0.0 K/mm3 (0.0-0.1) Abs Immat Gran (auto) 0.03 K/mm3 (0.00-0.031) Absolute Neuts (auto) 4.6 K/mm3 (1.3-6.7) Absolute Nucleated RBC 0.000 K/mm3 (0.0-0.012) Nucleated RBC % 0.0 % (0.0-0.2) Sodium 138 mmol/L (137-145) Potassium 3.9 mmol/L (3.4-5.0) Chloride 105 mmol/L (98-107) Carbon Dioxide 26 mmol/L (22-30) Anion Gap 7 mmol/L (4-12) BUN 13 D mg/dL (7-17) Creatinine 0.94 mg/dL (0.7-1.0) Estim Creat Clear Calc 50 ml/min Estimated GFR 58 L (59 - ) Glucose 97 mg/dL (65-110) Calcium 8.9 mg/dL (8.4-10.2) Magnesium 2.3 mg/dL (1.6-2.3) Iron 34 L ug/dL (37-170) TIBC 317 ug/dL (261-462) % Saturation 11 L % (20-50) Ferritin 12.00 ng/mL (11.1-264) Total Bilirubin 0.6 mg/dL (0.2-1.3) AST 29 U/L (14-36) ALT 14 U/L (6-35) Alkaline Phosphatase 78 U/L (38-126) Total Protein 6.6 g/dL (6.3-8.2) Albumin 3.6 g/dL (3.5-5.1) Patient hx anesthesia problems: none Family hx anesthesia problems: none Results Review: All pre-operative results and documents have been reviewed as part of the pre- operative evaluation. [facility] Family History Family History Other Carcinoma of colon Family history of malignant neoplasm of male breast Social History Social History Smoking status: Never smoker Alcohol intake: never Substance use: never Do You Feel Safe in your Home?: Yes Lack of Transportation: No Lack of Food: Never True Current Housing: I Have Housing Concerned About Future Housing: No Difficulty Paying Gas/Electric Bills: No Difficulty Paying for Meds: No Currently Unemployed: No Education: High School Diploma/GED Difficulty w/ Childcare or Family Care: No Spiritual care concerns: No Anes - Eval Final PreProcedure Day of Procedure 09/14/24 11:37 Patient weight: overweight Lungs: normal air movement Airway: Mallampati scale class II Neurological: alert and oriented Last oral intake: >/= 8 hours ASA classification: II Emergent: no Anesthetic plan: proceed Anesthesia type and monitoring: general ETT and standard monitoring Results Review: All pre-operative results and documents have been reviewed as part of the pre- operative evaluation. GERD, overall good functional status, mechanical fall while tripping over a box. Informed Consent: The patient's anesthetic plan and its attendant risks and benefits were discussed with the patient/family/POA. Questions were solicited and answers provided to the satisfaction of the patient/family/POA.
[2024-09-14] MEDS: LACTATED RINGERS 1,000 ML 30 ML IV CONT ×2 (11:49→15:28)
--- NOTE | 2024-09-14 12:11 | WPDHPUPDATE1 ---
History and Physical Update Update Date/Time: 09/14/24 12:11 History and Physical has been reviewed, including an updated exam of the patient. There are NO changes in the patient's condition. Risks, benefits, and alternatives have been discussed and questions answered. Patient agrees to proceed with procedure. Right Hip Hemiarthroplasty
[2024-09-14] MEDS: LIDO 1%/EPINEPHRINE 1:100,000 50 ML VIAL 30 ML INFILTRATE (12:51)
--- NOTE | 2024-09-14 13:43 | P.PNIM_ITS ---
Progress Note: A&P Assessment and Plan (1) Closed fracture of neck of right femur: Qualifiers: Encounter type: initial encounter Qualified Code(s): S72.001A - Fracture of unspecified part of neck of right femur, initial encounter for cl osed fracture Code(s): S72.001A - Fracture of unspecified part of neck of right femur, initial encounter for closed fracture Status: Acute Plan Right hip fracture From mechanical fall Patient denies any head trauma or lightheadedness or passing out XR hip reviewed Ortho consulted and scheduled for surgery tomorrow PRN IV morphine for pain control Anemia Hb 10.3 Isat 12 500/1000 monitor H and H FOBT pending GERD continue Protonix DVT prophylaxis on Sq Lovenox Subjective Date/time seen: 09/14/24 13:43 Interval history: Comfortable at bedside awaiting OR today Review of Systems Review of Systems: All other systems were reviewed and negative except as noted in the HPI above Exam Narrative: General: alert and comfortable Eyes: EOMI, PERRLA ENNT External ears normal, Neck is supple, no masses, Respiratory systems: Clear to auscultation Cardiovascular S1, S2, normal rhythm, no murmur, rub, or gallop; no thrill or palpable murmurs on palpation. Gastrointestinal: soft, non-tender, and non-distended abdomen with no masses; BS present Skin: no rash, lesions, ulcerations, subcutaneous nodules or induration Musculoskeletal: unabel to exame right LE due to pain Neurologic: Alert and oriented x3, non focal Mental Status Exam: normal affect Objective Data Vital Signs Vital Signs: Vital Signs - 24 hr 09/13/24 13:46 09/13/24 20:00 09/13/24 20:10 Temperature 97.1 F L Pulse Rate 78 80 78 Respiratory Rate 16 17 18 Blood Pressure 111/87 136/80 Pulse Oximetry 97 96 95 Oxygen Delivery Room Air 09/14/24 00:03 09/14/24 04:55 09/14/24 08:00 Temperature 98.6 F 97.3 F L Pulse Rate 80 73 Respiratory Rate 17 16 Blood Pressure 142/73 H Pulse Oximetry 96 96 Oxygen Delivery Room Air 09/14/24 11:05 Temperature 99.3 F Pulse Rate 84 Respiratory Rate 14 Blood Pressure 164/75 H Pulse Oximetry 92 Oxygen Delivery Intake/Output Intake/Output: Intake & Output 09/11/24 09/12/24 09/13/24 09/14/24 23:59 23:59 23:59 23:59 Intake Total 218 Output Total 400 1150 Balance -182 -1150 Meds/Results Medications: Active Medications Generic Name Dose Route Start Last Admin Trade Name Freq PRN Reason Stop Dose Admin Dextrose 12.5 gm 09/12/24 20:40 Dextrose 50% 25 Gm/50 Ml Syringe IV PUSH PRN PRN Hypoglycemia Protocol Enoxaparin Sodium 40 mg 09/14/24 09:00 Enoxaparin 40 Mg/0.4 Ml Syringe SUB-Q DAILY SAUMYA Fentanyl Citrate 25 mcg 09/14/24 11:31 Fentanyl Citrate Inj (*Crx) 100 Mcg/2 Ml Vial IV PUSH Q2M PRN Pain Glucagon 1 mg 09/12/24 20:40 Glucagon For Inj 1 Mg Vial IM PRN PRN Hypoglycemia Protocol Glucose 15 gm 09/12/24 20:40 Glucose Oral Gel 15 Gm Of Glucse In 37.5 Gm Tube PO PRN PRN Hypoglycemia Protocol Dextrose 1,000 mls @ 100 mls/hr 09/12/24 20:40 Dextrose 5% 1,000 Ml IVPB PRN PRN Hypoglycemia Protocol Lactated Ringer's 1,000 mls @ 30 mls/hr 09/14/24 11:35 09/14/24 11:49 Lr - Lactated Ringers Iv IV CONT 30 mls/hr .Q24H SAUMYA Administration Lactated Ringer's 1,000 mls @ 30 mls/hr 09/14/24 11:35 Lr - Lactated Ringers Iv IV CONT .Q24H SAUMYA Morphine Sulfate 4 mg 09/12/24 20:40 09/14/24 08:32 Morphine Sulfate (*Crx) 4 Mg/Ml Inj IV PUSH 4 mg Q2H PRN Administration Pain Rated 4-6 Ondansetron HCl 4 mg 09/12/24 20:40 09/14/24 08:33 Ondansetron Inj 4 Mg/2 Ml Vial IV PUSH 4 mg Q4H PRN Administration Nausea Ondansetron HCl 4 mg 09/14/24 11:31 Ondansetron Inj 4 Mg/2 Ml Vial IV PUSH ONCE PRN Nausea Oxycodone HCl 5 mg 09/14/24 11:31 Oxycodone Hcl (*Crx) 5 Mg Tab Ir PO ONCE PRN Pain Pantoprazole Sodium 40 mg 09/13/24 09:50 09/14/24 08:34 Pantoprazole 40 Mg Tablet PO 40 mg QAM SAUMYA Administration Radiology Results: ITS Impressions Hip/Pelvis X-Ray 09/12/24 19:19 IMPRESSION: Fracture of the right femoral neck. Bilateral hip moderate osteoarthritic changes. Pubic symphysitis. Chest X-Ray 09/12/24 19:21 IMPRESSION: No acute cardiopulmonary pathology. Highly suggestive mass in the right supra hilar area. CT evaluation advised Chest CT 09/12/24 21:04 IMPRESSION: Uncoiling of the thoracic aorta altering the cardiomediastinal silhouette and simulating a right hilar mass on plain film evaluation. Trace right basilar atelectasis. The remainder of the lungs are clear. Labs Labs: Laboratory Results - last 24 hr 09/14/24 05:53 WBC 7.1 RBC 4.07 L Hgb 10.2 L Hct 33.9 L MCV 83.3 MCH 25.1 L MCHC 30.1 L RDW 18.4 H Plt Count 227 MPV 9.5 Immature Gran % (Auto) 0.4 Neut % (Auto) 65.0 Lymph % (Auto) 25.2 [place] % (Auto) 6.5 Eos % (Auto) 2.5 Baso % (Auto) 0.4 Lymph # (Auto) 1.79 [place] # (Auto) 0.5 Eos # (Auto) 0.2 Baso # (Auto) 0.0 Abs Immat Gran (auto) 0.03 Absolute Neuts (auto) 4.6 Absolute Nucleated RBC 0.000 Nucleated RBC % 0.0 Sodium 138 Potassium 3.9 Chloride 105 Carbon Dioxide 26 Anion Gap 7 BUN 13 D Creatinine 0.94 Estim Creat Clear Calc 50 Estimated GFR 58 L Glucose 97 Calcium 8.9 Magnesium 2.3 Iron 34 L TIBC 317 % Saturation 11 L Ferritin 12.00 Total Bilirubin 0.6 AST 29 ALT 14 Alkaline Phosphatase 78 Total Protein 6.6 Albumin 3.6
--- NOTE | 2024-09-14 15:43 | W.PM.PROC2 ---
Procedure Note - Detailed Date of Procedure 09/14/24 Pre-op Diagnosis Displaced right femoral neck fracture Post-op Diagnosis Same Procedure Performed Right hip hemiarthroplasty Surgeon Robert Nelson MD Anesthesia General Indications The patient is a 74 fall onto right hip. Was seen in the [facility] emergency department a displaced right femoral neck fracture Findings Displaced right hip femoral neck fracture Description of Procedure After obtaining consent with regard to the risks benefits alternatives complications of a right hip hemiarthroplasty which include but are not limited to infection or blood vessel injury DVT limb length discrepancy dislocation and sciatic nerve injury, the right hip was then in the holding area. I interviewed the patient as well as her and her son. They were present during the interview the holding area. The patient was then brought to the operating room placed in the supine position which time she underwent general anesthesia. She was then placed on the operating table and placed in the lateral decubitus position with all bony prominences padded including the axillary area as well as the common peroneal nerve and the opposite leg. The right hip was then prepped and draped in a standard sterile fashion. A time-out was performed prior to the procedure to verify correct patient correct site of surgery correct procedure and to verify that 2 g of Ancef were administered within 1 hour the incision time. A posterior approach was performed with a 10 in incision over the lateral aspect of the patient's right hip. Dissection was carried down to the ITB band identified the it band was sharply incised. A Charnley retractor was then placed the hip was then internally rotated and identified the piriformis immediately. I tagged the piriformis identified the capsule performed a T capsulotomy and tagged the capsule. The sciatic nerve was identified and protected during the entire procedure. I then did my femoral neck cut about 1.5 cm from the lesser trochanter. I then removed the femoral head measured this at 43 mm in diameter. I then proceeded to use a box osteotome in order to gain access to the proximal aspect of the femur. I made sure to maintain the patient's cachil dehe anteversion with a box osteotome. I then proceeded to broach up to a size 3. I then placed a standard offset 0 neck length trial the patient had good stability however about hip flexion with adduction and internal rotation to about 60? she start to subluxate. I then opted to go with a increased offset with a standard neck length and noted that the patient had excellent stability with adduction and hip flexion to 90? with internal rotation to 80?. I then opted to go with a size 3 femoral component and a increase offset 0 neck length bipolar component and then placed the actual component in the exact same positioning as the zeynep and xiang. After placing the actual components in position, I had the exact same stability profile. In addition the patient's limb lengths were equal on the table. Then irrigated copiously and repaired the capsule with Ethibond suture and then I also repaired the short external rotators to the back of the femur through 2 drill holes. Then irrigated copiously again and then repaired the ITB band using interrupted 2-0 Ethibond suture. Hemostasis was obtained during the entire procedure using the Aquamantys. I then closed skin using 2-0 Vicryl suture and then natalie. The right hip was then bandaged in sterile fashion it shows show transferred to the recovery room stable condition. The patient will be weight-bearing as tolerated anticoagulated for 4 weeks with aspirin and observe posterior hip precautions. Implants Antonio Accolate stem size 3, 127 degree neck angle hip stem with a 42 mm universal head +0 mm neck length Estimated Blood Loss 500 Urine Output 400 Drains No Packing No Pathology None sent Complications No immediate complications Condition Stable Disposition PACU
[2024-09-14] MEDS: PROPARACAINE HCL 0.5% 15 ML OPHTH SOLN 1 DROP EACH EYE (16:44)
[2024-09-14] MEDS: fentaNYL CITRATE INJ (*CRX) 100 MCG/2 ML VIAL 25 MCG IV PUSH (16:52)
[2024-09-14] MEDS: SENNA/DOCUSATE SODIUM TABLET 2 TAB PO (17:49)
[2024-09-14] MEDS: ENOXAPARIN 40 MG/0.4 ML SYRINGE SUB-Q (17:50)
[2024-09-14] MEDS: ceFAZolin 2 GM/D5W 50 ML 2 GM/50 ML BAG IVPB (20:51)
[2024-09-14] MEDS: DICLOFENAC SODIUM 0.1% OPHTH SOLN 2.5 ML BOTTLE 1 DROP EACH EYE (20:51)
[2024-09-14] MEDS: FAMOTIDINE 20 MG TABLET PO (20:52)
[2024-09-15] VITALS (8 sets, daily range): BP systolic 102–147; BP diastolic 61–87; PULSE 78–102; RESP 16–20; TEMP 36.1–37.4; O2SAT 93–97
[2024-09-15] MEDS: HYDROcodone/acetaminophen (*CRX) 5-325 MG TABLET 1 TAB PO ×4 (05:12→21:33)
[2024-09-15] MEDS: DICLOFENAC SODIUM 0.1% OPHTH SOLN 2.5 ML BOTTLE 1 DROP EACH EYE (05:13)
[2024-09-15] MEDS: ceFAZolin 2 GM/D5W 50 ML 2 GM/50 ML BAG IVPB ×2 (05:13→15:46)
[2024-09-15 06:17] LABS: Hematocrit 29.8 % (37.0-47.0); Hemoglobin 9.0 g/dL (12.0-15.0); Immature Granulocyte Percent A 0.6 % (0-0.5); Lymphocytes Absolute Auto 1.08 K/mm3 (0.9-3.2); Mean Corpuscular HGB Conc 30.2 g/dl (32-36); Mean Corpuscular Hemoglobin 24.8 pg (26-34); Mean Corpuscular Volume 82.1 fl (80-100); Nucleated Red Blood Cells Absolute Auto 0.000 K/mm3 (0.0-0.012); Nucleated Red Blood Cells Perc 0.0 % (0.0-0.2); Platelet Count Result 206 k/mm3 (150-375); Red Blood Count 3.63 M/mm3 (4.2-5.4); White Blood Count 12.3 K/mm3 (4.5-10.0)
[2024-09-15 06:32] LABS: Alanine Aminotransferase 17 U/L (6-35); Albumin Level 3.0 g/dL (3.5-5.1); Alkaline Phosphatase 79 U/L (38-126); Anion Gap 8 mmol/L (4-12); Aspartate Amino Transferase 42 U/L (14-36); Bilirubin,Total 0.2 mg/dL (0.2-1.3); Blood Urea Nitrogen 10 mg/dL (7-17); Calcium 8.5 mg/dL (8.4-10.2); Carbon Dioxide 24 mmol/L (22-30); Chloride 105 mmol/L (98-107); Estimated CRCL calculation 56 ml/min; Estimated Glomerular Filt Rate > 60; Glucose 115 mg/dL (65-110); Magnesium 2.1 mg/dL (1.6-2.3); Potassium 3.8 mmol/L (3.4-5.0); Sodium 137 mmol/L (137-145); Total Protein 5.8 g/dL (6.3-8.2)
[2024-09-15] MEDS: ENOXAPARIN 40 MG/0.4 ML SYRINGE SUB-Q (09:26)
[2024-09-15] MEDS: SENNA/DOCUSATE SODIUM TABLET 2 TAB PO ×2 (09:26→17:24)
[2024-09-15] MEDS: FAMOTIDINE 20 MG TABLET PO ×2 (09:26→20:47)
[2024-09-15] MEDS: PANTOPRAZOLE 40 MG TABLET PO (09:27)
[2024-09-15] MEDS: IRON SUCROSE COMPLEX 400 MG, IRON SUCROSE COMPLEX 100 MG in SODIUM CHLORIDE 0.9% IV 250 ML 78.57 MG IVPB (11:17)
--- NOTE | 2024-09-15 12:08 | PM.PNORT ---
Progress Note: A&P Assessment and Plan (1) Closed fracture of neck of right femur: Qualifiers: Encounter type: initial encounter Qualified Code(s): S72.001A - Fracture of unspecified part of neck of right femur, initial encounter for closed fracture Code(s): S72.001A - Fracture of unspecified part of neck of right femur, initial encounter for closed fracture Status: Acute Plan Post OP day 1: Right Hip [place] - continue PT and OT - doing well Subjective Subjective Date/Time Seen: 09/15/24 12:08 Post Op day: 1 (Right Hip [place]) Principal diagnosis: Right hip femoral neck fracture Interval history: Minimal pain, eating well. Had some difficulty with back to back OT and PT. Exam Narrative: Right Lower extremity with good DF at ankle Objective Data Vital Signs Vital Signs: Vital Signs - 24 hr 09/14/24 15:28 09/14/24 15:40 09/14/24 15:55 Temperature 36.6 C Pulse Rate 82 81 81 Respiratory Rate 17 18 16 Blood Pressure 153/78 H 151/81 H 166/73 H Pulse Oximetry 100 100 100 Oxygen Delivery Simple Face Mask Simple Face Mask Room Air Oxygen Flow Rate 6 6 09/14/24 16:10 09/14/24 16:25 09/14/24 16:40 Temperature 36.3 C L Pulse Rate 68 74 70 Respiratory Rate 12 16 14 Blood Pressure 146/87 H 139/84 156/79 H Pulse Oximetry 93 95 95 Oxygen Delivery Room Air Room Air Room Air Oxygen Flow Rate 09/14/24 16:55 09/14/24 17:10 09/14/24 17:25 Temperature 36.4 C 36.5 C Pulse Rate 74 74 80 Respiratory Rate 16 18 16 Blood Pressure 142/80 H 149/66 H 145/85 H Pulse Oximetry 94 93 95 Oxygen Delivery Room Air Oxygen Flow Rate 09/14/24 17:55 09/14/24 18:22 09/14/24 20:00 Temperature 36.6 C 36.7 C Pulse Rate 74 76 Respiratory Rate 16 16 Blood Pressure 150/79 H 135/71 Pulse Oximetry 93 94 Oxygen Delivery Room Air Oxygen Flow Rate 09/14/24 20:50 09/15/24 00:35 09/15/24 05:35 Temperature 36.9 C 36.1 C L 36.4 C L Pulse Rate 84 78 90 Respiratory Rate 20 16 18 Blood Pressure 149/74 H 135/65 128/87 Pulse Oximetry 93 93 97 Oxygen Delivery Oxygen Flow Rate 09/15/24 08:25 09/15/24 08:26 09/15/24 10:35 Temperature 36.7 C Pulse Rate 92 Respiratory Rate 17 Blood Pressure 147/77 H Pulse Oximetry 97 Oxygen Delivery Room Air Room Air Oxygen Flow Rate Intake/Output Intake/Output: Intake & Output 09/12/24 09/13/24 09/14/24 09/15/24 23:59 23:59 23:59 23:59 Intake Total 218 250 540 Output Total 400 1989 1049 Balance -182 -1740 -510 Meds/Results Medications: Active Medications Generic Name Dose Route Start Last Admin Trade Name Freq PRN Reason Stop Dose Admin Acetaminophen 500 mg 09/14/24 15:37 Acetaminophen 500 Mg Tablet PO Q6H PRN Pain Rated 1-3 Hydrocodone Bitart/Acetaminophen 1 tab 09/14/24 15:37 09/15/24 11:16 Hydrocodone/Acetaminophen (*Crx) 5-325 Mg Tablet PO 1 tab Q4H PRN Administration Pain Rated 4-6 Hydrocodone Bitart/Acetaminophen 1 tab 09/14/24 15:37 Hydrocodone/Acetaminophen (*Crx) 10-325 Mg Tablet PO Q4H PRN Pain Rated 7-10 Artificial Tears 1 drop 09/14/24 16:35 Artificial Tears Ophth Soln 15 Ml Bottle EACH EYE Q2H PRN Dry Eye(s) Dextrose 12.5 gm 09/12/24 20:40 Dextrose 50% 25 Gm/50 Ml Syringe IV PUSH PRN PRN Hypoglycemia Protocol Diclofenac Sodium 1 drop 09/14/24 22:00 09/15/24 05:13 Diclofenac Sodium 0.1% Ophth Soln 2.5 Ml Bottle EACH EYE 09/18/24 21:59 1 drop Q8HR SAUMYA Administration Enoxaparin Sodium 40 mg 09/14/24 09:00 09/15/24 09:26 Enoxaparin 40 Mg/0.4 Ml Syringe SUB-Q 40 mg DAILY SAUMYA Administration Famotidine 20 mg 09/14/24 21:00 09/15/24 09:26 Famotidine 20 Mg Tablet PO 20 mg Q12HR SAUMYA Administration Glucagon 1 mg 09/12/24 20:40 Glucagon For Inj 1 Mg Vial IM PRN PRN Hypoglycemia Protocol Glucose 15 gm 09/12/24 20:40 Glucose Oral Gel 15 Gm Of Glucse In 37.5 Gm Tube PO PRN PRN Hypoglycemia Protocol Hydromorphone HCl 1 mg 09/14/24 15:44 Hydromorphone Hcl Inj (*Crx) 2 Mg/Ml Vial IV PUSH Q2H PRN Breakthrough Pain Rated 7-10 or NPO Hydromorphone HCl 0.5 mg 09/14/24 15:45 Hydromorphone Hcl Inj (*Crx) 2 Mg/Ml Vial IV PUSH Q2H PRN Breakthrough Pain Rated 4-6 or NPO Dextrose 1,000 mls @ 100 mls/hr 09/12/24 20:40 Dextrose 5% 1,000 Ml IVPB PRN PRN Hypoglycemia Protocol Ibuprofen 800 mg in 200 mls @ 400 mls/hr 09/14/24 15:37 Caldolor 800 Mg/200 Ml IVPB Q6H PRN Breakthrough Pain Rated 1-3 or NPO Cefazolin Sodium 2 gm in 50 mls @ 100 mls/hr 09/14/24 22:00 09/15/24 05:13 Ancef 2 Gm/D5w 50 Ml IVPB 09/15/24 14:29 100 mls/hr Q8H SAUMYA Administration Iron Sucrose 400 mg/ Iron 275 mls @ 78.571 mls/hr 09/15/24 09:59 09/15/24 11:17 Sucrose 100 mg/ Sodium IVPB 09/15/24 13:28 78.57 mls/hr Chloride ONCE ONE Administration Morphine Sulfate 4 mg 09/12/24 20:40 09/14/24 08:32 Morphine Sulfate (*Crx) 4 Mg/Ml Inj IV PUSH 4 mg Q2H PRN Administration Pain Rated 4-6 Naloxone HCl 0.1 mg 09/14/24 15:37 Naloxone Hcl 0.4 Mg/Ml Vial IV PUSH Q2M PRN Opiate Reversal Ondansetron HCl 4 mg 09/12/24 20:40 09/14/24 08:33 Ondansetron Inj 4 Mg/2 Ml Vial IV PUSH 4 mg Q4H PRN Administration Nausea Ondansetron HCl 4 mg 09/14/24 15:37 Ondansetron Inj 4 Mg/2 Ml Vial IV PUSH Q4H PRN Nausea And Vomiting Pantoprazole Sodium 40 mg 09/13/24 09:50 09/15/24 09:27 Pantoprazole 40 Mg Tablet PO 40 mg QAM SAUMYA Administration Polyethylene Glycol 17 gm 09/15/24 09:00 09/15/24 09:27 Polyethylene Glycol 3350 17 Gm Powd.Pack PO Not Given QAM SAUMYA Senna/Docusate Sodium 2 tab 09/14/24 17:00 09/15/24 09:26 Senna/Docusate Sodium Tablet PO 2 tab BID SAUMYA Administration Radiology Results: ITS Impressions Hip/Pelvis X-Ray 09/12/24 19:19 IMPRESSION: Fracture of the right femoral neck. Bilateral hip moderate osteoarthritic changes. Pubic symphysitis. Chest X-Ray 09/12/24 19:21 IMPRESSION: No acute cardiopulmonary pathology. Highly suggestive mass in the right supra hilar area. CT evaluation advised Chest CT 09/12/24 21:04 IMPRESSION: Uncoiling of the thoracic aorta altering the cardiomediastinal silhouette and simulating a right hilar mass on plain film evaluation. Trace right basilar atelectasis. The remainder of the lungs are clear. Hip X-Ray 09/14/24 17:39 IMPRESSION: 1. Spectral appearance of a bipolar type right hip knee arthroplasty, negative for postoperative purposes. Labs Labs: Laboratory Results - last 24 hr 09/15/24 05:43 WBC 12.3 H RBC 3.63 L Hgb 9.0 L Hct 29.8 L MCV 82.1 MCH 24.8 L MCHC 30.2 L RDW 18.3 H Plt Count 206 MPV 10.1 Immature Gran % (Auto) 0.6 H Neut % (Auto) 82.5 H Lymph % (Auto) 8.8 L [place] % (Auto) 7.9 Eos % (Auto) 0.0 Baso % (Auto) 0.2 Lymph # (Auto) 1.08 [place] # (Auto) 1.0 H Eos # (Auto) 0.0 Baso # (Auto) 0.0 Abs Immat Gran (auto) 0.07 H Absolute Neuts (auto) 10.1 H Absolute Nucleated RBC 0.000 Nucleated RBC % 0.0 Sodium 137 Potassium 3.8 Chloride 105 Carbon Dioxide 24 Anion Gap 8 BUN 10 Creatinine 0.83 Estim Creat Clear Calc 56 Estimated GFR > 60 Glucose 115 H Calcium 8.5 Magnesium 2.1 Total Bilirubin 0.2 AST 42 H ALT 17 Alkaline Phosphatase 79 Total Protein 5.8 L Albumin 3.0 L
--- NOTE | 2024-09-15 13:04 | P.PNAN_ITS ---
Anes - Prog Note Post-Op Date/Time: 09/15/24 13:04 Cardiovascular status: normal Respiratory status: normal Airway patency: baseline Mental status: baseline Post-Op hydration status: normal Vital Signs: Last Vital Signs Temp 36.7 C 09/15/24 08:25 Pulse 92 09/15/24 08:25 Resp 17 09/15/24 08:25 BP 147/77 H 09/15/24 08:25 Pulse Ox 97 09/15/24 08:25 O2 Del Method Room Air 09/15/24 10:35 O2 Flow Rate 6 09/14/24 15:40 Pain Score (VAS): 2 I/O: Intake & Output 09/14/24 09/15/24 09/15/24 23:59 07:59 15:59 Intake Total 250 300 240 Output Total 440 1050 Balance -190 -750 240 Laboratory Tests 09/15/24 05:43 09/15/24 05:43 09/15/24 05:43 WBC 12.3 H RBC 3.63 L Hgb 9.0 L Hct 29.8 L MCV 82.1 MCH 24.8 L MCHC 30.2 L RDW 18.3 H Plt Count 206 MPV 10.1 Immature Gran % (Auto) 0.6 H Neut % (Auto) 82.5 H Lymph % (Auto) 8.8 L [place] % (Auto) 7.9 Eos % (Auto) 0.0 Baso % (Auto) 0.2 Lymph # (Auto) 1.08 [place] # (Auto) 1.0 H Eos # (Auto) 0.0 Baso # (Auto) 0.0 Abs Immat Gran (auto) 0.07 H Absolute Neuts (auto) 10.1 H Absolute Nucleated RBC 0.000 Nucleated RBC % 0.0 Sodium 137 Potassium 3.8 Chloride 105 Carbon Dioxide 24 Anion Gap 8 BUN 10 Creatinine 0.83 Estim Creat Clear Calc 56 Estimated GFR > 60 Glucose 115 H Calcium 8.5 Magnesium 2.1 Total Bilirubin 0.2 AST 42 H ALT 17 Alkaline Phosphatase 79 Total Protein 5.8 L Albumin 3.0 L Post-procedural complaints: none Patient Feedback: Patient satisfied with anesthetic care.
--- NOTE | 2024-09-15 13:54 | PM.IMPN ---
Progress Note: A&P Assessment and Plan (1) Closed fracture of neck of right femur: Qualifiers: Encounter type: initial encounter Qualified Code(s): S72.001A - Fracture of unspecified part of neck of right femur, initial encounter for closed fracture Code(s): S72.001A - Fracture of unspecified part of neck of right femur, initial encounter for closed fracture Status: Acute Plan Right hip fracture From mechanical fall Patient denies any head trauma or lightheadedness or passing out XR hip reviewed s/p Right hip hemiarthroplasty PRN IV morphine for pain control Anemia Hb 9.0 Isat 12 1000/1000 monitor H and H FOBT pending GERD continue Protonix DVT prophylaxis on Sq Lovenox Awaiting placement Subjective Date/time seen: 09/15/24 13:54 Interval history: Comfortable at bedside Review of Systems Review of Systems: All other systems were reviewed and negative except as noted in the HPI above Exam Narrative: General: alert and comfortable Eyes: EOMI, PERRLA ENNT External ears normal, Neck is supple, no masses, Respiratory systems: Clear to auscultation Cardiovascular S1, S2, normal rhythm, no murmur, rub, or gallop; no thrill or palpable murmurs on palpation. Gastrointestinal: soft, non-tender, and non-distended abdomen with no masses; BS present Skin: no rash, lesions, ulcerations, subcutaneous nodules or induration Musculoskeletal: Surgical site clean and dry Neurologic: Alert and oriented x3, non focal Mental Status Exam: normal affect Objective Data Vital Signs Vital Signs: Vital Signs - 24 hr 09/14/24 15:28 09/14/24 15:40 09/14/24 15:55 Temperature 97.8 F Pulse Rate 82 81 81 Respiratory Rate 17 18 16 Blood Pressure 153/78 H 151/81 H 166/73 H Pulse Oximetry 100 100 100 Oxygen Delivery Simple Face Mask Simple Face Mask Room Air Oxygen Flow Rate 6 6 09/14/24 16:10 09/14/24 16:25 09/14/24 16:40 Temperature 97.3 F L Pulse Rate 68 74 70 Respiratory Rate 12 16 14 Blood Pressure 146/87 H 139/84 156/79 H Pulse Oximetry 93 95 95 Oxygen Delivery Room Air Room Air Room Air Oxygen Flow Rate 09/14/24 16:55 09/14/24 17:10 09/14/24 17:25 Temperature 97.6 F 97.7 F Pulse Rate 74 74 80 Respiratory Rate 16 18 16 Blood Pressure 142/80 H 149/66 H 145/85 H Pulse Oximetry 94 93 95 Oxygen Delivery Room Air Oxygen Flow Rate 09/14/24 17:55 09/14/24 18:22 09/14/24 20:00 Temperature 97.8 F 98.0 F Pulse Rate 74 76 Respiratory Rate 16 16 Blood Pressure 150/79 H 135/71 Pulse Oximetry 93 94 Oxygen Delivery Room Air Oxygen Flow Rate 09/14/24 20:50 09/15/24 00:35 09/15/24 05:35 Temperature 98.5 F 96.9 F L 97.5 F L Pulse Rate 84 78 90 Respiratory Rate 20 16 18 Blood Pressure 149/74 H 135/65 128/87 Pulse Oximetry 93 93 97 Oxygen Delivery Oxygen Flow Rate 09/15/24 08:25 09/15/24 08:26 09/15/24 08:30 Temperature 98.1 F Pulse Rate 92 Respiratory Rate 17 Blood Pressure 147/77 H Pulse Oximetry 97 Oxygen Delivery Room Air Room Air Oxygen Flow Rate 09/15/24 10:35 Temperature Pulse Rate Respiratory Rate Blood Pressure Pulse Oximetry Oxygen Delivery Room Air Oxygen Flow Rate Intake/Output Intake/Output: Intake & Output 09/12/24 09/13/24 09/14/24 09/15/24 23:59 23:59 23:59 23:59 Intake Total 218 250 540 Output Total 400 1989 1049 Balance -182 -1740 -510 Meds/Results Medications: Active Medications Generic Name Dose Route Start Last Admin Trade Name Freq PRN Reason Stop Dose Admin Acetaminophen 500 mg 09/14/24 15:37 Acetaminophen 500 Mg Tablet PO Q6H PRN Pain Rated 1-3 Hydrocodone Bitart/Acetaminophen 1 tab 09/14/24 15:37 09/15/24 11:16 Hydrocodone/Acetaminophen (*Crx) 5-325 Mg Tablet PO 1 tab Q4H PRN Administration Pain Rated 4-6 Hydrocodone Bitart/Acetaminophen 1 tab 09/14/24 15:37 Hydrocodone/Acetaminophen (*Crx) 10-325 Mg Tablet PO Q4H PRN Pain Rated 7-10 Artificial Tears 1 drop 09/14/24 16:35 Artificial Tears Ophth Soln 15 Ml Bottle EACH EYE Q2H PRN Dry Eye(s) Dextrose 12.5 gm 09/12/24 20:40 Dextrose 50% 25 Gm/50 Ml Syringe IV PUSH PRN PRN Hypoglycemia Protocol Diclofenac Sodium 1 drop 09/14/24 22:00 09/15/24 05:13 Diclofenac Sodium 0.1% Ophth Soln 2.5 Ml Bottle EACH EYE 09/18/24 21:59 1 drop Q8HR SAUMYA Administration Enoxaparin Sodium 40 mg 09/14/24 09:00 09/15/24 09:26 Enoxaparin 40 Mg/0.4 Ml Syringe SUB-Q 40 mg DAILY SAUMYA Administration Famotidine 20 mg 09/14/24 21:00 09/15/24 09:26 Famotidine 20 Mg Tablet PO 20 mg Q12HR SAUMYA Administration Glucagon 1 mg 09/12/24 20:40 Glucagon For Inj 1 Mg Vial IM PRN PRN Hypoglycemia Protocol Glucose 15 gm 09/12/24 20:40 Glucose Oral Gel 15 Gm Of Glucse In 37.5 Gm Tube PO PRN PRN Hypoglycemia Protocol Hydromorphone HCl 1 mg 09/14/24 15:44 Hydromorphone Hcl Inj (*Crx) 2 Mg/Ml Vial IV PUSH Q2H PRN Breakthrough Pain Rated 7-10 or NPO Hydromorphone HCl 0.5 mg 09/14/24 15:45 Hydromorphone Hcl Inj (*Crx) 2 Mg/Ml Vial IV PUSH Q2H PRN Breakthrough Pain Rated 4-6 or NPO Dextrose 1,000 mls @ 100 mls/hr 09/12/24 20:40 Dextrose 5% 1,000 Ml IVPB PRN PRN Hypoglycemia Protocol Ibuprofen 800 mg in 200 mls @ 400 mls/hr 09/14/24 15:37 Caldolor 800 Mg/200 Ml IVPB Q6H PRN Breakthrough Pain Rated 1-3 or NPO Cefazolin Sodium 2 gm in 50 mls @ 100 mls/hr 09/14/24 22:00 09/15/24 05:13 Ancef 2 Gm/D5w 50 Ml IVPB 09/15/24 14:29 100 mls/hr Q8H SAUMYA Administration Morphine Sulfate 4 mg 09/12/24 20:40 09/14/24 08:32 Morphine Sulfate (*Crx) 4 Mg/Ml Inj IV PUSH 4 mg Q2H PRN Administration Pain Rated 4-6 Naloxone HCl 0.1 mg 09/14/24 15:37 Naloxone Hcl 0.4 Mg/Ml Vial IV PUSH Q2M PRN Opiate Reversal Ondansetron HCl 4 mg 09/12/24 20:40 09/14/24 08:33 Ondansetron Inj 4 Mg/2 Ml Vial IV PUSH 4 mg Q4H PRN Administration Nausea Ondansetron HCl 4 mg 09/14/24 15:37 Ondansetron Inj 4 Mg/2 Ml Vial IV PUSH Q4H PRN Nausea And Vomiting Pantoprazole Sodium 40 mg 09/13/24 09:50 09/15/24 09:27 Pantoprazole 40 Mg Tablet PO 40 mg QAM SAUMYA Administration Polyethylene Glycol 17 gm 09/15/24 09:00 09/15/24 09:27 Polyethylene Glycol 3350 17 Gm Powd.Pack PO Not Given QAM SAUMYA Senna/Docusate Sodium 2 tab 09/14/24 17:00 09/15/24 09:26 Senna/Docusate Sodium Tablet PO 2 tab BID SAUMYA Administration Radiology Results: ITS Impressions Hip/Pelvis X-Ray 09/12/24 19:19 IMPRESSION: Fracture of the right femoral neck. Bilateral hip moderate osteoarthritic changes. Pubic symphysitis. Chest X-Ray 09/12/24 19:21 IMPRESSION: No acute cardiopulmonary pathology. Highly suggestive mass in the right supra hilar area. CT evaluation advised Chest CT 09/12/24 21:04 IMPRESSION: Uncoiling of the thoracic aorta altering the cardiomediastinal silhouette and simulating a right hilar mass on plain film evaluation. Trace right basilar atelectasis. The remainder of the lungs are clear. Hip X-Ray 09/14/24 17:39 IMPRESSION: 1. Spectral appearance of a bipolar type right hip knee arthroplasty, negative for postoperative purposes. Labs Labs: Laboratory Results - last 24 hr 09/15/24 05:43 WBC 12.3 H RBC 3.63 L Hgb 9.0 L Hct 29.8 L MCV 82.1 MCH 24.8 L MCHC 30.2 L RDW 18.3 H Plt Count 206 MPV 10.1 Immature Gran % (Auto) 0.6 H Neut % (Auto) 82.5 H Lymph % (Auto) 8.8 L [place] % (Auto) 7.9 Eos % (Auto) 0.0 Baso % (Auto) 0.2 Lymph # (Auto) 1.08 [place] # (Auto) 1.0 H Eos # (Auto) 0.0 Baso # (Auto) 0.0 Abs Immat Gran (auto) 0.07 H Absolute Neuts (auto) 10.1 H Absolute Nucleated RBC 0.000 Nucleated RBC % 0.0 Sodium 137 Potassium 3.8 Chloride 105 Carbon Dioxide 24 Anion Gap 8 BUN 10 Creatinine 0.83 Estim Creat Clear Calc 56 Estimated GFR > 60 Glucose 115 H Calcium 8.5 Magnesium 2.1 Total Bilirubin 0.2 AST 42 H ALT 17 Alkaline Phosphatase 79 Total Protein 5.8 L Albumin 3.0 L
[2024-09-15] MEDS: SODIUM CHLORIDE 0.9% IV 1,000 ML 100 ML IV CONT (15:46)
[2024-09-16] MEDS: HYDROcodone/acetaminophen (*CRX) 5-325 MG TABLET 1 TAB PO ×4 (01:24→13:37)
[2024-09-16 05:00] VITALS: BP 136/77; PULSE 93; RESP 20; TEMP 36.8; O2SAT 95
[2024-09-16 06:43] LABS: Hematocrit 27.7 % (37.0-47.0); Hemoglobin 8.3 g/dL (12.0-15.0); Immature Granulocyte Percent A 0.7 % (0-0.5); Immature Platelet Fraction Pct 3.3 % (0.9-11.2); Lymphocytes Absolute Auto 1.48 K/mm3 (0.9-3.2); Mean Corpuscular HGB Conc 30.0 g/dl (32-36); Mean Corpuscular Hemoglobin 25.2 pg (26-34); Mean Corpuscular Volume 83.9 fl (80-100); Nucleated Red Blood Cells Absolute Auto 0.000 K/mm3 (0.0-0.012); Nucleated Red Blood Cells Perc 0.0 % (0.0-0.2); Platelet Count Result 178 k/mm3 (150-375); Red Blood Count 3.30 M/mm3 (4.2-5.4); White Blood Count 8.6 K/mm3 (4.5-10.0)
[2024-09-16 07:03] LABS: Alanine Aminotransferase 25 U/L (6-35); Albumin Level 2.8 g/dL (3.5-5.1); Alkaline Phosphatase 68 U/L (38-126); Anion Gap 4 mmol/L (4-12); Aspartate Amino Transferase 74 U/L (14-36); Bilirubin,Total 0.6 mg/dL (0.2-1.3); Blood Urea Nitrogen 11 mg/dL (7-17); Calcium 8.0 mg/dL (8.4-10.2); Carbon Dioxide 25 mmol/L (22-30); Chloride 105 mmol/L (98-107); Estimated CRCL calculation 60 ml/min; Estimated Glomerular Filt Rate > 60; Glucose 100 mg/dL (65-110); Magnesium 2.0 mg/dL (1.6-2.3); Potassium 3.6 mmol/L (3.4-5.0); Sodium 134 mmol/L (137-145); Total Protein 5.6 g/dL (6.3-8.2)
[2024-09-16] MEDS: PANTOPRAZOLE 40 MG TABLET PO (09:41)
[2024-09-16] MEDS: FAMOTIDINE 20 MG TABLET PO (09:41)
[2024-09-16] MEDS: ENOXAPARIN 40 MG/0.4 ML SYRINGE SUB-Q (09:42)
[2024-09-16] MEDS: SENNA/DOCUSATE SODIUM TABLET 2 TAB PO (09:42)
[2024-09-16] MEDS: ARTIFICIAL TEARS OPHTH SOLN 15 ML BOTTLE 1 DROP EACH EYE (09:44)
--- NOTE | 2024-09-16 11:33 | PM.DS ---
DS: Admitting Diagnosis Discharge Date 09/16/24 Admitting Diagnosis right hip pain after a fall DS: Discharge Diagnosis Discharge Diagnosis (1) Closed fracture of neck of right femur: Qualifiers: Encounter type: initial encounter Qualified Code(s): S72.001A - Fracture of unspecified part of neck of right femur, initial encounter for closed fracture Code(s): S72.001A - Fracture of unspecified part of neck of right femur, initial encounter for closed fracture Status: Acute DS: Summary Hospital Course Hospital Course: 74 yo female with PMH of GERD presented to the ER on account of right hip pain following a fall. Patient noted that she tripped on a box at work at about 4pm. Denies any chest pain, SOB, lightheadedness, Abd pain, diarrhea and vomiting, dysuria and no focal weakness prior to episode. ER eval noted BP 149/99, labs notable for WBC 13, Xray hip showed right femoral neck fracture CXR showed mass in right supra hilar area, CT done clarified that is uncoiling of the aorta, thus hilar mass ruled out Ortho was consulted prior to admission Patient underwent Right hip hemiarthroplasty, evaluated PT/OT recommended acute rehab. discharged to [facility] with PRN Hydrocodone/Tylenol 5/325mg Q6 PRN. Discharged on Aspirin 81mg bid x 6 weeks for prophyalxis Patient was also managed for iron deficiency anemia hb 9.0 and isat 12, received 1000mg IV Iron F/u with PCP in 3-5 days F/u with ortho as instructed. Time Spent with Patient Time attestation: Total time spent providing and/or coordinating discharge services: DS: Data Data Completed and Pending Labs on day of discharge: Labs from last 24 hours 09/16/24 06:01 WBC 8.6 RBC 3.30 L Hgb 8.3 L Hct 27.7 L MCV 83.9 MCH 25.2 L MCHC 30.0 L RDW 19.1 H Plt Count 178 MPV 10.9 H Immature Gran % (Auto) 0.7 H Neut % (Auto) 69.9 Lymph % (Auto) 17.3 L [place] % (Auto) 10.4 H Eos % (Auto) 1.3 Baso % (Auto) 0.4 Lymph # (Auto) 1.48 [place] # (Auto) 0.9 H Eos # (Auto) 0.1 Baso # (Auto) 0.0 Abs Immat Gran (auto) 0.06 H Absolute Neuts (auto) 6.0 Absolute Nucleated RBC 0.000 Nucleated RBC % 0.0 % Immature Plt Fraction 3.3 Sodium 134 L Potassium 3.6 Chloride 105 Carbon Dioxide 25 Anion Gap 4 BUN 11 Creatinine 0.77 Estim Creat Clear Calc 60 Estimated GFR > 60 Glucose 100 Calcium 8.0 L Magnesium 2.0 Total Bilirubin 0.6 AST 74 H ALT 25 Alkaline Phosphatase 68 Total Protein 5.6 L Albumin 2.8 L Discharge Plan Discharge Attending physician on discharge: Alisson Mathew Consulting providers: Robert Nelson Discharging Clinician: Alisson Mathew Anticipated Discharge Date/Time: 09/16/24 11:31 Patient Disposition: [facility] Activity: as tolerated Diet: as tolerated and regular Patient Language: Icelandic Discharge Medications: New hydrocodone-acetaminophen 5-325 mg tablet 1 tablet PO Q6H PRN (Reason: pain) 5 Days Qty: 10 0RF Continued omeprazole 20 mg capsule,delayed release(DR/EC) 20 mg PO DAILY Date of admission: 09/13/24 07:45 Primary Care Provider: WayneWiley Admitting Provider: Charmaine Vega Attending physician on admission: Alisson Mathew Condition: Stable
[2024-09-16 13:05] VITALS: O2SAT 92
--- NOTE | 2024-09-18 06:15 | P.CDI_ITS ---
CDI Query Clarification Request Please clarify the status of the patient's anemia, if known. Anemia has been documented, please specify type of anemia if known: * Acute blood loss anemia * Chronic blood loss anemia * Anemia of chronic disease (CKD,neoplasm, other) * Aplastic anemia * Dilutional anemia * Iron Deficiency anemia * Pernicious anemia * Nutritional anemia (e.g., scorbutic anemia) * Other anemia * Unknown/unable to determine The medical chart reflects the following: Plan Right hip fracture From mechanical fall Patient denies any head trauma or lightheadedness or passing out XR hip reviwed Ortho consulted and scheduled for surgery tomorrow PRN IV morphine for pain control Anemia Hb 10.6 Iron panel and FOBT pending monitor H and H 09/12 Hgb 10.6 09/14 Hgb 9.0 09/16 Hgb 8.3 09/17 Hgb 8.3 09/14: Iron level 34 TIBC 317 Ferritin 12.00 IV iron sucrose 09/14 and 09/15 <Payal Gee RN - Last Filed: 09/18/24 06:51> Clarified Diagnosis Clarified Diagnosis: * Iron Deficiency anemia <Alisson Mathew MD - Last Filed: 09/18/24 07:35>
== END 2024-09-16 15:45 | DRG 522 ==
LOC: ANHED 20:23 → ANH3MEDSUR 21:46
PROVIDERS: Orthopaedic Surgery; Admitting Provider Internal Medicine; Emergency Provider Physician Assistant; PCP Internal Medicine; Visit Provider Internal Medicine
PROC: 0SRR01A Replacement of Right Hip Joint, Femoral Surface with Metal Synthetic Substitute, Uncemented, Open Approach (ICD-10-PCS; CPT 27125; principal; 2024-09-14 12:30)
DX: S72.001A Fracture of unspecified part of neck of right femur, initial encounter for closed fracture (principal); W18.09XA Striking against other object with subsequent fall, initial encounter; K21.9 Gastro-esophageal reflux disease without esophagitis; D50.9 Iron deficiency anemia, unspecified
CPT/HCPCS: 36415; 71045; 71250; 73502; 80053; 82728; 83540; 83550; 83735; 85025; 85055; 85610; 85730; 93005; 96374; 96375; 96376; 97110; 97161; 97166; 97530; 97535; 99285; J0690; A9270; C1776; J1100; J1171; J1650; J1756; J2003; J2004; J2270; J2405; J2704; J3010; J7030; J7050; J7120